=== PATIENT | male | born 1970 | race Caucasian/White ===

== ENCOUNTER 2024-08-14 00:31 | Day surgery (SDC) | payer OTHER, SELFPAY ==
[2024-08-09 15:34] VITALS: BMI 33.5
--- NOTE | 2024-08-09 15:59 | PC.NURSE ---
Addendum entered by Melissa Castellanos RN 08/12/24 15:17: Received clearance from cardiology office to hold Plavix- spoke with pt regarding this and he confirms he has been off since last dose on 08/07/2024 and will remain off until after his appt. Original Note: Spoke with PATIENT regarding medication PLAVIX. PATIENT states he has already stopped his Plavix as he has been able to stop it in the past for other procedures, I did explain to patient that I needed the approval from his cardiology office and was waiting for them to respond. Pt verbalizes that the last dose is to be taken on 08/08/2024, the Endoscopist will instruct them when to restart after the procedure.
[2024-08-14 09:54] VITALS: BP 115/74; PULSE 72; RESP 16; TEMP 36.3; O2SAT 100
[2024-08-14] MEDS: LACTATED RINGERS 1,000 ML 150 ML IV CONT (10:03)
--- NOTE | 2024-08-14 10:28 | P.PNAN_ITS ---
Anes - Initial Pre Proc Eval Procedure: Operation Date: 08/14/24 11:00 Proposed Procedures p Esophagogastroduodenoscopy & Colonoscopy - Kunal Baltazar MD Date/Time: 08/14/24 10:28 Surgeon: Kunal Baltazar MD Pre Op Diagnosis: Melena,upper abd pain,fam hx colon polyps Patient Data Age: 54 Gender: M Height: 1.73 m Weight: 97.2 kg Last Vital Signs Temp 97.4 F L 08/14/24 09:54 Pulse 72 08/14/24 09:54 Resp 16 08/14/24 09:54 BP 115/74 08/14/24 09:54 Pulse Ox 100 08/14/24 09:54 O2 Del Method Room Air 08/14/24 09:54 Allergies Allergy/AdvReac Type Severity Reaction Status Date / Time tramadol AdvReac Unknown Itching Verified 08/14/24 09:52 Home Medications ?Medication ?Instructions ?Recorded ?Confirmed ?Type aspirin 81 mg tablet,delayed 81 mg PO DAILY 07/15/24 08/14/24 History release (Adult Aspirin Regimen) atorvastatin 80 mg tablet 80 mg PO DAILY 07/15/24 08/14/24 History clopidogrel 75 mg tablet (Plavix) 75 mg PO DAILY 07/15/24 08/14/24 History empagliflozin 10 mg tablet 10 mg PO DAILY 07/15/24 08/14/24 History furosemide 20 mg tablet (Lasix) 20 mg PO QAM 07/15/24 08/14/24 History gabapentin 100 mg capsule 100 mg PO DAILY 07/15/24 08/14/24 History ketorolac 10 mg tablet 10 mg PO Q8H PRN pain 07/15/24 08/14/24 History lisinopril 20 mg tablet 20 mg PO DAILY 07/15/24 08/14/24 History metoprolol succinate 100 mg 100 mg PO DAILY 07/15/24 08/14/24 History tablet,extended release 24 hr nitroglycerin 0.4 mg sublingual 0.4 mg sublingual Q5M PRN chest 07/15/24 08/09/24 History tablet pain omeprazole 40 mg capsule,delayed 40 mg PO DAILY 07/15/24 08/14/24 History release spironolactone 25 mg tablet 25 mg PO DAILY 07/15/24 08/14/24 History tizanidine 4 mg capsule (Zanaflex) 4 mg PO QHS PRN muscle spasticity 07/15/24 08/09/24 History amlodipine 5 mg tablet 5 mg PO DAILY 08/09/24 08/14/24 History cyclobenzaprine 10 mg tablet 10 mg PO Q12H PRN spasms 08/09/24 08/14/24 History isosorbide mononitrate 60 mg 60 mg PO DAILY 08/09/24 08/14/24 History tablet,extended release 24 hr Patient hx anesthesia problems: none Family hx anesthesia problems: none Results Review: All pre-operative results and documents have been reviewed as part of the pre- operative evaluation. [facility], [facility] Past Medical History Medical History (Updated 07/15/24 @ 15:08 by Melanie Boss MA) NSTEMI (non-ST elevated myocardial infarction) Arterial vascular disease Black stools Encounter for screening colonoscopy Family history of colonic polyps Family history of colon cancer in father Weight loss Constipation Early satiety Bloating Upper abdominal pain Surgical History Surgical History (Updated 07/15/24 @ 15:10 by Melanie Boss MA) H/O neck surgery Hx of cholecystectomy Hx of coronary artery bypass graft H/O laminectomy Family History Family History (Updated 07/15/24 @ 15:12 by Melanie Boss MA) Father Cancer Hypertension Heart disease Cerebrovascular accident Mother Hypertension Diabetes mellitus Heart disease Social History Social History (Updated 07/15/24 @ 15:12 by Melanie Boss MA) Smoking status: Never smoker Alcohol intake: current Substance use: never Substance use type: does not use Living arrangements: with family Spiritual care concerns: No Anes - Eval Final PreProcedure Day of Procedure 08/14/24 10:28 Patient weight: normal Heart: regular rate and rhythm Lungs: clear to auscultation Airway: Mallampati scale class II Neurological: alert and oriented Last oral intake: >/= 8 hours ASA classification: III Emergent: no Anesthetic plan: proceed Results Review: All pre-operative results and documents have been reviewed as part of the pre- operative evaluation. Informed Consent: The patient's anesthetic plan and its attendant risks and benefits were discussed with the patient/family/POA. Questions were solicited and answers provided to the satisfaction of the patient/family/POA.
--- NOTE | 2024-08-14 11:03 | P.HP_ITS ---
H&P: HPI History of Present Illness Date/Time: 08/14/24 11:03 Chief Complaint: new onset constipation -melena-GERD Narrative: the patient was seen in your office last month, complaining of intermittent melena episodes, associated with new onset constipation, Coincidental with his spinal surgery a few months ago. in addition he complains of abdominal bloating and occasional heartburn. Of note, his father of colorectal cancer at age 70. He has never had an EGD or colonoscopy. Review of Systems Review of Systems: All systems reviewed & are unremarkable except as noted in HPI and below PMFSH Past Medical History Medical History (Updated 07/15/24 @ 15:08 by Melanie Boss MA) NSTEMI (non-ST elevated myocardial infarction) Arterial vascular disease Black stools Encounter for screening colonoscopy Family history of colonic polyps Family history of colon cancer in father Weight loss Constipation Early satiety Bloating Upper abdominal pain Surgical History Surgical History (Updated 07/15/24 @ 15:10 by Melanie Boss MA) H/O neck surgery Hx of cholecystectomy Hx of coronary artery bypass graft H/O laminectomy Family History Family History (Updated 07/15/24 @ 15:12 by Melanie Boss MA) Father Cancer Hypertension Heart disease Cerebrovascular accident Mother Hypertension Diabetes mellitus Heart disease Social History Social History (Updated 07/15/24 @ 15:12 by Melanie Boss MA) Smoking status: Never smoker Alcohol intake: current Substance use: never Substance use type: does not use Living arrangements: with family Spiritual care concerns: No Meds Home Medications and Allergies Home Medications ?Medication ?Instructions ?Recorded ?Confirmed ?Type aspirin 81 mg tablet,delayed 81 mg PO DAILY 07/15/24 08/14/24 History release (Adult Aspirin Regimen) atorvastatin 80 mg tablet 80 mg PO DAILY 07/15/24 08/14/24 History clopidogrel 75 mg tablet (Plavix) 75 mg PO DAILY 07/15/24 08/14/24 History empagliflozin 10 mg tablet 10 mg PO DAILY 07/15/24 08/14/24 History furosemide 20 mg tablet (Lasix) 20 mg PO QAM 07/15/24 08/14/24 History gabapentin 100 mg capsule 100 mg PO DAILY 07/15/24 08/14/24 History ketorolac 10 mg tablet 10 mg PO Q8H PRN pain 07/15/24 08/14/24 History lisinopril 20 mg tablet 20 mg PO DAILY 07/15/24 08/14/24 History metoprolol succinate 100 mg 100 mg PO DAILY 07/15/24 08/14/24 History tablet,extended release 24 hr nitroglycerin 0.4 mg sublingual 0.4 mg sublingual Q5M PRN chest 07/15/24 08/09/24 History tablet pain omeprazole 40 mg capsule,delayed 40 mg PO DAILY 07/15/24 08/14/24 History release spironolactone 25 mg tablet 25 mg PO DAILY 07/15/24 08/14/24 History tizanidine 4 mg capsule (Zanaflex) 4 mg PO QHS PRN muscle spasticity 07/15/24 08/09/24 History amlodipine 5 mg tablet 5 mg PO DAILY 08/09/24 08/14/24 History cyclobenzaprine 10 mg tablet 10 mg PO Q12H PRN spasms 08/09/24 08/14/24 History isosorbide mononitrate 60 mg 60 mg PO DAILY 08/09/24 08/14/24 History tablet,extended release 24 hr Allergies Allergy/AdvReac Type Severity Reaction Status Date / Time tramadol AdvReac Unknown Itching Verified 08/14/24 09:52 Vital Signs Vital Signs - 24 hr 08/14/24 09:54 Temperature 97.4 F L Pulse Rate 72 Respiratory Rate 16 Blood Pressure 115/74 Pulse Oximetry 100 Oxygen Delivery Room Air Exam Const: General: cooperative and healthy appearing Resp: Effort & Inspection: normal respiratory effort and able to speak in complete sentences Auscultation: clear to auscultation bilaterally Cardio: Rate: regular rate Rhythm: regular rhythm GI: Inspection: normal to inspection GI Palp: No No hepatosplenomegaly pr esent Auscultation: normal bowel sounds Rectal Exam: deferred Skin: General skin exam: normal color Psych: Appearance: grossly normal Mental Status: mental status grossly normal Assessment and Plan Assessment and plan (1) Family history of colon cancer in father: Code(s): Z80.0 - Family history of malignant neoplasm of digestive organs Status: Acute Assessment and Plan: The patient is deemed a good candidate for the procedure. Consent signed. Will proceed. (2) Upper abdominal pain: Code(s): R10.10 - Upper abdominal pain, unspecified Status: Acute
[2024-08-14] MEDS: BENZOCAINE (*SP) 60 ML SPRAY CAN (HURRICAINE) 1 SPRAY MUCOUS MEM (11:13)
--- NOTE | 2024-08-14 11:27 | SUR.OPER ---
EGD end 1121 COLONOSCOPY START 112
[2024-08-14 11:44] VITALS: BP 95/69; PULSE 64; RESP 20; O2SAT 100
[2024-08-14 11:54] VITALS: BP 109/67; PULSE 63; RESP 17; O2SAT 98
[2024-08-14 12:04] VITALS: BP 113/73; PULSE 60; RESP 20; O2SAT 98
== END 2024-08-14 12:49 | disposition home or self-care (01) ==
PROVIDERS: PCP Family Medicine; Referring Provider Nurse Practitioner Family; Visit Provider Internal Medicine Gastroenterology
PROC: 0DJ08ZZ Inspection of Upper Intestinal Tract, Via Natural or Artificial Opening Endoscopic (ICD-10-PCS; CPT 45378; principal; 2024-08-14 11:00)
DX: K29.30 Chronic superficial gastritis without bleeding (principal); K92.1 Melena; K59.00 Constipation, unspecified; Z80.0 Family history of malignant neoplasm of digestive organs; Z79.02 Long term (current) use of antithrombotics/antiplatelets; Z79.84 Long term (current) use of oral hypoglycemic drugs; Z79.82 Long term (current) use of aspirin
CPT/HCPCS: 45378; 43239; 88305; J2003; J2704; J7120